=== PATIENT | female | born 1995 | race Caucasian/White ===

== ENCOUNTER → 2020-06-20 09:39 | Outpatient (CLI) | payer OTHER, SELFPAY ==
[2020-06-20 10:41] LABS: Appearance Urine UA CLEAR; Bilirubin Urine UA NEGATIVE (NEGATIVE); Color Urine UA YELLOW; Glucose Urine UA NEGATIVE (Negative); Ketones Urine UA NEGATIVE (NEGATIVE); Leukocyte Esterase Urine UA NEGATIVE (NEGATIVE); Nitrite Urine UA NEGATIVE (Negative); Occult Blood Urine UA NEGATIVE (Negative); Protein Urine UA NEGATIVE (Negative); Urobilinogen Urine UA 0.2 E.U./dL (0.2)
[2020-06-20 11:41] LABS: Add Manual Diff / Slide Review NO; Basophils Absolute Auto 0 /uL (0-100); Basophils Percent Auto 0.3 % (0-2); Eosinophils Absolute Auto 100 /uL (0-450); Eosinophils Percent Auto 1.6 % (2-4); Hematocrit 42.4 % (36-46); Hemoglobin 14.5 g/dL (12.0-16.0); Lymphocytes Absolute Auto 1700 /uL (1100-4500); Lymphocytes Percent Auto 19.3 % (25-40); Mean Corpuscular HGB Conc 34.2 % (30-36); Mean Corpuscular Hemoglobin 28.4 PG (26-34); Mean Corpuscular Volume 82.9 fL (80-100); Monocytes Absolute Auto 600 /uL (0-900); Monocytes Percent Auto 7.3 % (3-14); Neutrophils Absolute Auto 6300 /uL (1500-7000); Neutrophils Percent Auto 71.5 % (50-75); Platelet Count 293 X10^3/uL (150-400); Red Blood Cell Count 5.12 X10^6/uL (4.0-5.2); Red Cell Distribution Width 12.9 % (11.6-14.8); White Blood Cell Count 8.8 X10^3/uL (4.5-11.0)
[2020-06-20 12:57] LABS: Hepatitis B Surface Antigen NEGATIVE s/c (NEGATIVE); Rubella Antibody IgG 3.6 IU/mL (>15)
[2020-06-20 13:16] LABS: HIV 1 & 2 Ab/Ag 4th Gen Combo NEGATIVE (NEGATIVE); Hep C Virus Ab w/Reflex Quant NEGATIVE s/c (NEGATIVE)
[2020-06-21 05:11] LABS: RPR Screen Non Reactive (Non Reactive)
[2020-06-21 06:36] LABS: Varicella IgG Antibody 1161 index (Immune >165)
== END ==
PROVIDERS: Family Provider Nurse Practitioner; PCP Family Medicine; Referring Provider Family Medicine; Visit Provider Family Medicine
DX: Z34.01 Encounter for supervision of normal first pregnancy, first trimester (principal)
CPT/HCPCS: 36415; 80055; 81003; 86787; 86803; 86850; 86900; 86901; 87086; 87389

== ENCOUNTER → 2020-08-26 10:50 | Outpatient (CLI) | payer OTHER, SELFPAY ==
[2020-08-29 20:41] LABS: Calc Gestational Age EDD (.); Estriol, Free 1.99 ng/mL (.); Inhibin A, MoM 0.85 (.); Maternal Ethnicity Caucasian (.); Maternal Weight 205 lbs (.); Number of Fetuses No (.); OSBR Risk 1 IN 10000 (.); Results Report (.); Test Results *Screen Negative* (.); hCG, MoM 0.88 (.); hCG, Serum 19433 mIU/mL (.)
== END ==
PROVIDERS: Family Provider Nurse Practitioner; PCP Family Medicine; Referring Provider Family Medicine; Visit Provider Family Medicine
DX: Z34.02 Encounter for supervision of normal first pregnancy, second trimester (principal); Z3A.17 17 weeks gestation of pregnancy
CPT/HCPCS: 36415; 82105; 82677; 84702; 86336

== ENCOUNTER → 2020-09-09 14:12 | Outpatient (CLI) | payer OTHER, SELFPAY ==
--- NOTE | 2020-09-09 14:12 | DI.US.S_ITS ---
PROCEDURE: US OB >= 14 WEEKS FETUS INDICATIONS: ANATOMIC SURVEY OUTSIDE/PRIOR DATING DATA: Last menstrual period (LMP): 04/19/2020 LMP-based estimated date of delivery (MARY): 01/24/2021 First dating scan (date and location): 09/09/2020 Estimated date of delivery (MARY) from first dating scan: 01/27/2021 TECHNIQUE: Real-time scanning was performed of the fetus, with image documentation and biometric measurements. Endovaginal scanning: Not performed. COMPARISON: None. FINDINGS: General: A single living intrauterine gestation is present. Presentation: Breech. Placenta: Placental position is anterior, without previa. Amniotic fluid index: 16 cm, normal range is 5-24 cm. heart rate: 143 beats per minute. Maternal cervical canal: 3.2 cm long. Normal lower limit is 2.5 cm. biometrics: Biparietal diameter: 4.8 cm, 20 weeks 3 days Head circumference: 18 cm, 20 weeks 3 days Abdominal circumference: 13.7 cm, 19 weeks 1 day. 10th percentile. Femur length: 3.2 cm, 19 weeks 6 days Estimated gestational age from initial scan: Not applicable Composite gestational age from present scan: 20 weeks 0 days Estimated weight and percentile: 299 g, 9th percentile. Measurement variability for biometric dating: +/- 7 days from 14 weeks to 15 weeks 6 days gestation, +/- 10 days from 16 weeks to 21 weeks 6 days gestation, +/- 2 weeks from 22 weeks to 27 weeks 6 days gestation, +/- 3 weeks for 28 weeks gestation or later. weight reference: 4500 g or EFW >90/95% is considered macrosomia or large for gestational age. EFW <10% is small for gestational age. EFW 5% or less is considered intra-uterine growth restriction. Anatomic survey: Neuro: Ventricles are non-dilated at less than 10 mm. Cisterna magna is normal at 3-11 mm. Cerebellum is normal in size and morphology. Nuchal skin fold: Normal at less than 6 mm between 14-21 weeks gestational age. Face: Nose and lips, facial profile are normal. Spine: No evidence for spina bifida. Heart: 4-chambered heart is present, with normal ventricular outflow tracts. Diaphragm: Diaphragm is intact. Stomach: Left-sided stomach is present. Kidneys: No hydronephrosis. Normal is less than 5 mm in 2nd trimester, less than 7 mm in 3rd trimester. Cord: 3-vessel cord has orthotopic insertion. Bladder: Normal in size. Extremities: All 4 extremities identified. No maternal hydronephrosis. IMPRESSION: 1. Crouch living intrauterine at 20 weeks 0 days based on today's ultrasound. Breech position. Fetus is in the 9th percentile for weight estimated at 299 g. 2. Normal placenta and amniotic fluid. 3. Normal and complete anatomic survey. Dictated by: Alexandre Alcantar M.D. on 09/09/2020 at 17:00 Approved by: Alexandre Alcantar M.D. on 09/09/2020 at 17:05
== END ==
PROVIDERS: Family Provider Nurse Practitioner; PCP Family Medicine; Referring Provider Family Medicine; Visit Provider Family Medicine
DX: Z34.02 Encounter for supervision of normal first pregnancy, second trimester (principal); Z3A.20 20 weeks gestation of pregnancy
CPT/HCPCS: 76811

== ENCOUNTER → 2020-10-31 10:50 | Outpatient (CLI) | payer OTHER, SELFPAY ==
[2020-10-31 12:58] LABS: Hemoglobin 12.1 g/dL (12.0-16.0)
[2020-10-31 13:46] LABS: GTT (PREG) 1 Hour PP 50gm Dose 138 mg/dL (76-139)
== END ==
PROVIDERS: Family Provider Nurse Practitioner; PCP Family Medicine; Referring Provider Family Medicine; Visit Provider Family Medicine
DX: Z34.02 Encounter for supervision of normal first pregnancy, second trimester (principal); Z3A.25 25 weeks gestation of pregnancy
CPT/HCPCS: 36415; 82950; 85014; 85018

== ENCOUNTER → 2020-11-04 10:02 | Outpatient (CLI) | payer OTHER, SELFPAY ==
[2020-11-04 12:01] LABS: Glucose Fasting Gestational 78 mg/dL (76-95)
[2020-11-04 13:26] LABS: Glucose 1 Hour Gest 141 mg/dL (76-180)
[2020-11-04 13:53] LABS: Glucose 2 Hour Gest 141 mg/dL (76-155)
[2020-11-04 13:59] LABS: Glucose Tol Interp,Gestational INTERPRETATION
[2020-11-04 14:49] LABS: Glucose 3 Hour Gest 124 mg/dL (76-140)
== END ==
PROVIDERS: Family Provider Nurse Practitioner; PCP Family Medicine; Referring Provider Family Medicine; Visit Provider Family Medicine
DX: Z34.90 Encounter for supervision of normal pregnancy, unspecified, unspecified trimester (principal); R73.09 Other abnormal glucose
CPT/HCPCS: 36415; 82951; 82952

== ENCOUNTER 2020-11-12 09:32 | Emergency (ER) | payer OTHER, SELFPAY ==
[2020-11-12] VITALS (12 sets, daily range): BP systolic 98–116; BP diastolic 57–74; PULSE 70–93; RESP 16–28; TEMP 37.1; O2SAT 97–100; BMI 32.2
--- NOTE | 2020-11-12 09:32 | DI.RAD.S_ITS ---
PROCEDURE: XR CHEST 1V INDICATIONS: chest pain TECHNIQUE: One view of the chest was acquired. COMPARISON: None. FINDINGS: Surgical changes and devices: None. Lungs and pleura: Lungs are clear. No pleural effusions or pneumothorax. Mediastinum: Mediastinal contours appear normal. Heart size is normal. Bones and chest wall: No suspicious bony lesions. Overlying soft tissues appear unremarkable. IMPRESSION: No acute pulmonary process. Dictated by: Celia Hewitt M.D. on 11/12/2020 at 11:49 Approved by: Celia Hewitt M.D. on 11/12/2020 at 11:49
[2020-11-12 09:47] LABS: Add Manual Diff / Slide Review NO; Basophils Absolute Auto 0 /uL (0-100); Basophils Percent Auto 0.3 % (0-2); Eosinophils Absolute Auto 100 /uL (0-450); Eosinophils Percent Auto 1.8 % (2-4); Hematocrit 35.6 % (36-46); Hemoglobin 12.1 g/dL (12.0-16.0); Lymphocytes Absolute Auto 1500 /uL (1100-4500); Lymphocytes Percent Auto 19.3 % (25-40); Mean Corpuscular HGB Conc 34.1 % (30-36); Mean Corpuscular Hemoglobin 27.8 PG (26-34); Mean Corpuscular Volume 81.5 fL (80-100); Monocytes Absolute Auto 600 /uL (0-900); Monocytes Percent Auto 7.2 % (3-14); Neutrophils Absolute Auto 5600 /uL (1500-7000); Neutrophils Percent Auto 71.4 % (50-75); Platelet Count 254 X10^3/uL (150-400); Red Blood Cell Count 4.37 X10^6/uL (4.0-5.2); Red Cell Distribution Width 13.3 % (11.6-14.8); White Blood Cell Count 7.8 X10^3/uL (4.5-11.0)
[2020-11-12 09:55] LABS: INR 1.1 (0.9-1.3); Prothrombin Time 12.3 SECONDS (10.1-12.7)
[2020-11-12 09:57] LABS: PTT Partial Thromboplastin Tim 30 SECONDS (26.4-36.2)
[2020-11-12 09:59] LABS: Alanine Aminotransferase 12 IU/L (<35); Albumin 3.6 g/dL (3.5-5.0); Albumin Globulin Ratio 1.2 (1.0-2.8); Alkaline Phosphatase 83 U/L (38-126); Aspartate Aminotransferase 19 IU/L (14-36); Bilirubin Total 0.3 mg/dL (0.2-1.3); Blood Urea Nitrogen 7 mg/dL (7-17); Carbon Dioxide 18 mmol/L (22-32); Chloride 108 mmol/L (98-107); Creatine Kinase 32 U/L (30-135); Estimated Glomerular Filt Rate > 60.0 mL/min (>60); Globulin 3.1 g/dL (1.7-4.1); Glucose 89 mg/dL (70-100); HEMOLYSIS 15 (0-50); Lipase 23 U/L (23-300); Sodium 134 mmol/L (137-145); Total Protein 6.7 g/dL (6.3-8.2)
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
[2020-11-12 10:10] LABS: Troponin I < 0.012 ng/mL (0.01-0.034)
[2020-11-12] MEDS: ACETAMINOPHEN 325 MG TABLET 975 MG PO (10:25)
[2020-11-12] MEDS: SODIUM CHLORIDE 0.9% 1,000 ML 1000 ML IV (10:26)
[2020-11-12 10:34] LABS: Bacteria Urine None Seen; RBC Urine None Seen (0-5/HPF)
[2020-11-12 10:41] LABS: Amorphous Sediment Urine 2+; Culture Indicated Urine Cult Not Indicated; Squamous Epithelial Cell Urine 5-10 /HPF (0-5/HPF); WBC Urine 1-5/HPF (0-5/HPF)
[2020-11-12 11:11] LABS: COVID19 -Nasal RAPID Negative (Negative)
[2020-11-12] MEDS: PANTOPRAZOLE 40 MG VIAL IV (11:24)
[2020-11-12] MEDS: ONDANSETRON 4 MG/2 ML INJ IV (12:18)
== END 2020-11-12 13:21 | disposition home or self-care (01) ==
PROVIDERS: Emergency Provider Emergency Medicine; Family Provider Nurse Practitioner; PCP Family Medicine
DX: R07.89 Other chest pain (principal); M54.9 Dorsalgia, unspecified; R05 Cough
CPT/HCPCS: 36415; 71045; 80053; 81015; 82550; 83690; 84484; 85025; 85610; 85730; 87635; 93005; 93010; 96361; 96374; 96375; 99281; 99284; C9113; J2405

== ENCOUNTER → 2020-11-27 10:46 | Outpatient (CLI) | payer OTHER, SELFPAY ==
--- NOTE | 2020-11-27 11:40 | DIET.PN ---
INITIAL GESTATIONAL DIABETES ASSESSMENT ASSESS:?Ms. Lamb is a 25 yof female referred for gestational diabetes. She is . She endorses strong fam hx including maternal and paternal grandfathers and father. She reports cutting down on energy drinks and sugary sweetened beverages but admits to consuming 2 soft drinks per day and redbull 1x/wk. She walks her dog daily. Does not currently have a glucometer. ? MARY:?Jan 24[birth year] 2021 ? WKS GESTATION:?? 31 wks ?LABS: 1 hr: 138 3hr: 148 ? MEDS: na ? DIET:? B: cheerios/rice crispies; egg, cheese, valenica sandwich L: leftovers D: tacos; spaghetti; chicken spinach wrap Sn: ritz, cheese its, fruit snacks, snickers, trailmix, soda 1-2x/d ? HT:? 68in ? PRE-PREG WT:? 200lb ? PRE-PREG BMI:???30.4 ? CURRENT WT: 206.8 ? TOTAL WT GAIN:? 6lb EXERCISE: walks dog NUTRITION DX 1. Altered nutrition related lab values r/t gestational diabetes as evidenced by recent labs (OGGT). INTERVENTION 1. Discussed pathophysiology of gestational diabetes and impact of hormone and nutrition/diet on blood sugar control.? Discussed fed versus non-fed state.? 2. Recommended checking fasting, pre-meal and 1hr post prandial (3x/day).? Discussed goals for glycemic control (<95 FBG, <140 1-hr PP).? 3. Discussed the effect of carbohydrates/protein/fat on blood sugar control.? Stressed importance of consistent carbohydrate intake at each meal and provided instructions for recommended servings/portions of carbohydrates/protein per meal.? Provided pt with educational material. 4. Introduced carbohydrate counting and measuring carbohydrate content via servings sizes and reading nutrition labels.? Provided handouts.? Pt will need further review 5. Discussed importance of meal timing and not going >3 hours between meals.? Provided sample meal schedule for pt.? Pt agreeable.?? 6. Discussed importance a pre- vitamin and including food sources of calcium, vitamin D, iron and folic acid for baby and mother?s nutrition support. 7. Discussed caffeine intake. Recommend no more than 200 mg/day (1 cup coffee). Discussed eliminating all sugar sweetened beverages and red bull. Pt agreeable. 8. Discussed rule of 15 for hypoglycemia. 9. Recommend patient purchase Urine Ketone strips and instructed on use and when to contact provider. 10. Recommended patient continue exercise as appropriate per PCP approval. 11. Patient may need medication management, will follow-up with plan of care at next visit after reviewing glucose results.? MONITOR/EVAL: This RD sent request for rx for glucometer and strips to test 4x/day. Follow up scheduled X 1 week after receiving glucometer. Good compliance expected. Review: carb sources, carb counting, portion size, meal timing, BG log, weight.
== END ==
PROVIDERS: Family Provider Nurse Practitioner; PCP Family Medicine; Referring Provider Family Medicine; Visit Provider Family Medicine
DX: O24.419 Gestational diabetes mellitus in pregnancy, unspecified control (principal); Z3A.31 31 weeks gestation of pregnancy; Z71.3 Dietary counseling and surveillance
CPT/HCPCS: G0108

== ENCOUNTER → 2020-12-09 12:09 | Outpatient (CLI) | payer OTHER, SELFPAY ==
--- NOTE | 2020-12-09 12:10 | DI.US.S_ITS ---
PROCEDURE: US OB LIMITED INDICATIONS: GESTATIONAL DIABETES OUTSIDE/PRIOR DATING DATA: Last menstrual period (LMP): 04/19/20. First dating scan (date and location): 09/09/20 . Estimated date of delivery (MARY) from first dating scan: 01/27/21 . TECHNIQUE: Real-time scanning was performed of the fetus, with image documentation and biometric measurements. Endovaginal scanning: Not needed COMPARISON: None. FINDINGS: General: A single living intrauterine gestation is present. Presentation: Vertex. Placenta: Placental position is anterior , without previa. Amniotic fluid index: 10.2 cm, normal range is 5-24 cm. heart rate: 133 Maternal cervical canal: 4.2 cm biometrics: Biparietal diameter: 8.3 cm, 33 weeks 2 days Head circumference: 29.5 cm, 32 weeks 5 days Abdominal circumference: 27 0.2 cm, 31 weeks 2 days Femur length: 5.9 cm, 30 weeks 4 days Estimated gestational age from initial scan: 33 weeks 0 days Composite gestational age from present scan: 32 weeks 0 days Estimated weight and percentile: 1751 g, lower 7th percentile Measurement variability for biometric dating: +/- 7 days from 14 weeks to 15 weeks 6 days gestation, +/- 10 days from 16 weeks to 21 weeks 6 days gestation, +/- 2 weeks from 22 weeks to 27 weeks 6 days gestation, +/- 3 weeks for 28 weeks gestation or later. weight reference: 4500 g or EFW >90/95% is considered macrosomia or large for gestational age. EFW <10% is small for gestational age. EFW 5% or less is considered intra-uterine growth restriction. Other: Not applicable. IMPRESSION: Single living intrauterine gestation, appropriate interval growth, the delivery date is projected to be centered on 01/27/21 Dictated by: Kal Roy M.D. on 12/09/2020 at 14:14 Approved by: Kal Roy M.D. on 12/09/2020 at 14:17
== END ==
PROVIDERS: Family Provider Nurse Practitioner; PCP Family Medicine; Referring Provider Family Medicine; Visit Provider Family Medicine
DX: O24.419 Gestational diabetes mellitus in pregnancy, unspecified control (principal); Z3A.32 32 weeks gestation of pregnancy
CPT/HCPCS: 76815

== ENCOUNTER → 2020-12-29 12:31 | Outpatient (CLI) | payer OTHER, SELFPAY ==
[2020-12-30 11:52] LABS: Strep Grp B PCR POS for Grp B Strep
== END ==
PROVIDERS: Family Provider Nurse Practitioner; PCP Family Medicine; Visit Provider Family Medicine
DX: Z34.03 Encounter for supervision of normal first pregnancy, third trimester (principal); Z3A.36 36 weeks gestation of pregnancy
CPT/HCPCS: 87653

== ENCOUNTER 2020-12-29 15:37 | Outpatient (CLI) | payer OTHER, SELFPAY | END 2020-12-29 16:13 | disposition home or self-care (01) | LOC: LABOR 15:42 → OB 12-30 07:46 | PROVIDERS: Family Provider Nurse Practitioner; PCP Family Medicine; Referring Provider Family Medicine; Visit Provider Family Medicine | DX: O24.419 Gestational diabetes mellitus in pregnancy, unspecified control (principal); Z3A.36 36 weeks gestation of pregnancy | CPT/HCPCS: 59025; 87653; G0378; G0379 ==

== ENCOUNTER 2021-01-05 10:08 | Outpatient (CLI) | payer OTHER, SELFPAY | END 2021-01-05 10:46 | disposition home or self-care (01) | LOC: LABOR 10:44 → OB 13:10 | PROVIDERS: Family Provider Nurse Practitioner; PCP Family Medicine; Referring Provider Family Medicine; Visit Provider Family Medicine | DX: O24.419 Gestational diabetes mellitus in pregnancy, unspecified control (principal); Z3A.37 37 weeks gestation of pregnancy | CPT/HCPCS: 59025; G0378; G0379 ==

== ENCOUNTER 2021-01-16 11:50 | Outpatient (CLI) | payer OTHER, SELFPAY ==
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
== END 2021-01-16 12:43 | disposition home or self-care (01) ==
LOC: OB 01-18 12:17
PROVIDERS: Family Provider Nurse Practitioner; PCP Family Medicine; Referring Provider Family Medicine; Visit Provider Family Medicine
DX: O24.419 Gestational diabetes mellitus in pregnancy, unspecified control (principal); Z3A.38 38 weeks gestation of pregnancy
CPT/HCPCS: 59025; G0378; G0379

== ENCOUNTER 2021-01-27 22:08 | Inpatient (IN) | payer OTHER, SELFPAY ==
[2021-01-27 23:38] VITALS: BP 126/80
[2021-01-28] MEDS: LACTATED RINGERS 1,000 ML 100 ML IV ×2 (01:17→02:50)
[2021-01-28 01:21] LABS: Add Manual Diff / Slide Review NO; Basophils Absolute Auto 0 /uL (0-100); Basophils Percent Auto 0.2 % (0-2); Eosinophils Absolute Auto 100 /uL (0-450); Eosinophils Percent Auto 0.7 % (2-4); Hematocrit 38.7 % (36-46); Hemoglobin 13.3 g/dL (12.0-16.0); Lymphocytes Absolute Auto 1700 /uL (1100-4500); Lymphocytes Percent Auto 14.9 % (25-40); Mean Corpuscular HGB Conc 34.2 % (30-36); Mean Corpuscular Hemoglobin 27.6 PG (26-34); Mean Corpuscular Volume 80.6 fL (80-100); Monocytes Absolute Auto 800 /uL (0-900); Monocytes Percent Auto 6.9 % (3-14); Neutrophils Absolute Auto 8700 /uL (1500-7000); Neutrophils Percent Auto 77.3 % (50-75); Platelet Count 220 X10^3/uL (150-400); Red Cell Distribution Width 14.5 % (11.6-14.8); White Blood Cell Count 11.2 X10^3/uL (4.5-11.0)
[2021-01-28 01:31] LABS: COVID19 -Nasal RAPID Negative (Negative)
[2021-01-28] MEDS: FENT 2MCG/ML BUPIV 0.125% EPI 200 MCG/100 ML PLAST..BAG 12 MCG EPIDURAL (02:00)
[2021-01-28] MEDS: PENICILLIN G POTASSIUM 5,000,000 UNIT in DEXTROSE 5% IN WATER 250 ML IV (03:31)
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
[2021-01-28] MEDS: PENICILLIN G POTASSIUM 3,000,000 UNIT/50 ML FROZ.PIGGY 100 UNIT IV (07:28)
[2021-01-28] MEDS: OXYTOCIN PREMIX 30 UNIT/500 ML PLAST..BAG 150 UNIT IV (08:56)
--- NOTE | 2021-01-28 09:04 | P.PCN_ITS ---
Procedures Date/Time Date of procedure: 01/28/21 Time of procedure: 09:04 General Procedure description: Stage I of labor. Approximately 8 hours. Patient came to Labor and delivery for an early labor with contractions normal blood pressure afebrile. She was 3 cm dilated. She progressed gradually and had uncomfortable contractions. She was admitted to the labor and delivery for. Patient became more uncomfortable and requested an epidural which was given. Patient had gradual progression of labor during stage I which was consistent. Made a good transition of baby and cervical change. Category 1 category 2 tracing during stage I of labor. Patient received good comfort with epidural. At rupture of men drains spontaneously patient had thin meconium which progressed to more thick meconium. At approximately 7:30 a.m. patient was completely effaced. 0 to +1 station. Category 1 tracing. Patient's vital signs were stable. She was given 2 courses of antibiotics with pen G during stage I of labor due to her GBS positive status. Patient received HSV prophylaxis during the last 4 weeks of with valacyclovir. Stage II of labor. Approximately 1 hour. Category 1 and category 2 tracing. Mom pushed when baby made good descent from 0 to +3 station. heart tones were reassuring with decelerations with pushing. Patient had continuous meconium. Patient had good delivery of baby head without a PT ostomy. There was a nuchal cord which was easily reduced. And delivery of the shoulders without difficulty. Baby was placed on mother's abdomen. Baby had spontaneous cry. And good movement good tone and good color. Mom had good comfort during the pushing stage due to her epidural. Stage III of labor approximately 10 minutes delivery of intact placenta three- vessel cord. Patient had small bilateral narayan superior labial tears which did not need a repair. Patient was given Pitocin 30 units in a bag to run after delivery of the fetus. Mom and baby were resting comfortably estimated blood loss 300 cc.
[2021-01-28] MEDS: ONDANSETRON 4 MG/2 ML INJ IV (09:49)
[2021-01-29 07:17] LABS: Hematocrit 36.2 % (36-46); Hemoglobin 12.2 g/dL (12.0-16.0)
[2021-01-29] MEDS: LANOLIN OINT 7 GM 1 APPLIC TOP (07:58)
[2021-01-29] MEDS: DOCUSATE 100 MG CAPSULE PO (07:59)
[2021-01-29] MEDS: IBUPROFEN 600 MG TABLET PO (07:59)
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
[2021-01-29 09:48] VITALS: BP 130/86; PULSE 75; RESP 17; TEMP 37.1
[2021-01-29] MEDS: MEASLES,MUMPS,RUBELLA VACC/PF 0.5 ML VIAL SUBCUT (11:13)
== END 2021-01-29 11:40 | disposition home or self-care (01) | DRG 806 ==
PROVIDERS: Admitting Provider Family Medicine; Family Provider Nurse Practitioner; PCP Family Medicine; Referring Provider Family Medicine; Visit Provider Family Medicine
DX: O24.420 Gestational diabetes mellitus in childbirth, diet controlled (principal); F33.9 Major depressive disorder, recurrent, unspecified; Z37.0 Single live birth; O98.52 Other viral diseases complicating childbirth; O99.344 Other mental disorders complicating childbirth; O99.824 Streptococcus B carrier state complicating childbirth; Z3A.40 40 weeks gestation of pregnancy; Z20.822 Contact with and (suspected) exposure to COVID-19; B00.9 Herpesviral infection, unspecified; O77.0 Labor and delivery complicated by meconium in amniotic fluid
CPT/HCPCS: 01967; 36415; 59050; 59400; 85014; 85018; 85025; 86850; 86900; 86901; 87635; C9803; G0379; J2405; J2540; J2590

== ENCOUNTER → 2021-06-15 08:13 | Outpatient (CLI) | payer OTHER, SELFPAY ==
--- NOTE | 2021-06-15 08:14 | DI.US.S_ITS ---
PROCEDURE: US ABDOMEN COMPLETE INDICATIONS: RIGHT UPPER QUADRANT PAIN TECHNIQUE: Real-time scanning was performed of the abdominal and retroperitoneal organs, with image documentation. COMPARISON: None. FINDINGS: Liver: Liver is mildly prominent with steatosis. There is a focus of relative increased echogenicity within the right lower lobe measuring 19 x 10 x 13 mm. Gallbladder: Gallbladder is unremarkable. Wall thickness measures 1.8 mm. Biliary ducts: Intrahepatic bile ducts are non-dilated. Extrahepatic bile duct caliber measures 2.7 mm. Normal is 6-7 mm or less in diameter, or 10 mm or less post-cholecystectomy. Pancreas: Visualized portions of the pancreas are sonographically normal. Spleen: Spleen is normal in size and homogeneous in echotexture. Kidneys: Kidneys are normal in size and echotexture. Right kidney measures 10.9 cm long; left kidney measures 12.1 cm long. No hydronephrosis. It is noted that the inferior aspect of the right kidney is not well seen secondary to overlying bowel gas. There is a punctate area of increased echogenicity within the superior right renal pole without obstruction. No solid masses. Aorta: Visualized aorta is normal in caliber at less than 3 cm. Iliacs: Proximal common iliac arteries are normal in caliber at less than 2.5 cm. IVC: Intrahepatic inferior vena cava is patent. Miscellaneous: No free abdominal fluid. IMPRESSION: 1. Relative focus of increased echogenicity within the liver suspicious for hemangioma. 2. Suspected punctate nonobstructing right renal calculus. Dictated by: Celia Hewitt M.D. on 06/15/2021 at 10:37 Approved by: Celia Hewitt M.D. on 06/15/2021 at 10:39
== END ==
PROVIDERS: Family Provider Nurse Practitioner; PCP Family Medicine; Referring Provider Family Medicine; Visit Provider Family Medicine
DX: R10.11 Right upper quadrant pain (principal)
CPT/HCPCS: 76700

== ENCOUNTER → 2021-10-13 16:20 | Outpatient (CLI) | payer OTHER, SELFPAY ==
[2021-10-13 16:52] LABS: COVID19 -Nasal RAPID Negative (Negative)
== END ==
PROVIDERS: Family Provider Nurse Practitioner; PCP Family Medicine; Visit Provider Nurse Practitioner Family
DX: R09.81 Nasal congestion (principal); R05.9 Cough, unspecified
CPT/HCPCS: 87635

== ENCOUNTER → 2021-11-12 08:12 | Outpatient (CLI) | payer OTHER, SELFPAY ==
--- NOTE | 2021-11-12 08:14 | DI.US.S_ITS ---
PROCEDURE: US PELVIC COMPLETE INDICATIONS: LEFT FLANK PAIN TECHNIQUE: Real-time scanning was performed of the pelvic organs, with image documentation. Additional endovaginal scanning was necessary due to incomplete visualization of the adnexal and endometrial structures by transabdominal scanning. COMPARISON: [facility], US, US ABDOMEN COMPLETE, 06/15/2021, 8:39. [facility], US, US OB LIMITED, 12/09/2020, 12:21. [facility], US, PELVIS SONO TRANSVAGINAL (PNL), 09/05/2013, 7:12. FINDINGS: Uterus: Uterus is retroverted and normal in size at 5.7 x 4.3 x 5.5 cm. The myometrium is homogeneous. The endometrium measures 7 mm combined thickness. Ovaries: The right ovary measures 3.1 x 2.1 x 2.8 cm,. The left ovary measures 2.9 x 2.4 x 2.2 cm. The ovaries have a normal sonographic appearance. Other: No pathologic free abdominal or pelvic fluid. No hydronephrosis in left kidney. IMPRESSION: 1. Normal ultrasound appearance of uterus and ovaries. 2. A cause for left flank pain is not identified. We strive to produce accurate, complete, and clear reports of imaging services. To assist us in improving patient care, this report was composed using standard report templates and voice recognition software. Therefore, it may contain abnormal punctuation, insertions and/or omissions. Occasional wrong-word or sound-alike substitutions may occur. Though we review the report and make efforts to correct it, we do recommend that the report be read carefully in proper context to recognize any text inaccuracies. Dictated by: Sosa Domínguez M.D. on 11/12/2021 at 12:30 Approved by: Sosa Domínguez M.D. on 11/12/2021 at 12:37
== END ==
PROVIDERS: Family Provider Nurse Practitioner; PCP Family Medicine; Referring Provider Physician Assistant; Visit Provider Physician Assistant
DX: R10.12 Left upper quadrant pain (principal); R10.32 Left lower quadrant pain
CPT/HCPCS: 76830; 76856

== ENCOUNTER → 2021-11-24 16:06 | Outpatient (CLI) | payer OTHER, SELFPAY ==
--- NOTE | 2021-11-24 16:08 | DI.US.S_ITS ---
PROCEDURE: US ABDOMEN COMPLETE INDICATIONS: Sharp left upper and lower quadrant pain TECHNIQUE: Real-time scanning was performed of the abdominal and retroperitoneal organs, with image documentation. COMPARISON: [facility], US, US ABDOMEN COMPLETE, 06/15/2021, 8:39. FINDINGS: Liver: Liver is normal in size and homogeneous in echotexture. Echogenic focus in the right lobe of the liver measuring 1.3 cm is unchanged since May 2021. Liver surface appears smooth. Gallbladder: Nondilated. No stones or sludge. Normal gallbladder wall thickness. No pericholecystic fluid. Negative sonographic Ashford's sign. Biliary ducts: Intrahepatic bile ducts are non-dilated. Extrahepatic bile duct caliber measures 3 mm. Normal is 6-7 mm or less in diameter, or 10 mm or less post-cholecystectomy. Pancreas: Visualized portions of the pancreas are sonographically normal. Spleen: Spleen is normal in size and homogeneous in echotexture. Measures 9.3 cm. Kidneys: Kidneys are normal in size and echotexture. Right kidney measures 12.3 cm long; left kidney measures 12.6 cm long. No hydronephrosis or nephrolithiasis. No solid masses. Aorta: Visualized aorta is normal in caliber at less than 3 cm. Iliacs: Proximal common iliac arteries are normal in caliber at less than 2.5 cm. IVC: Intrahepatic inferior vena cava is patent. Miscellaneous: No free abdominal fluid. IMPRESSION: 1. Echogenic focus in the right lobe of the liver measuring 1.3 cm. This most likely represents a benign hemangioma. This is stable since May 2021. -This could be further characterized with multiphase liver MRI or CT. 2. No acute cholecystitis. No gallstones. 3. No hydronephrosis. 4. No splenomegaly. Dictated by: Alexandre Alcantar M.D. on 11/24/2021 at 16:55 Approved by: Alexandre Alcantar M.D. on 11/24/2021 at 17:00
== END ==
PROVIDERS: Family Provider Nurse Practitioner; PCP Family Medicine; Referring Provider Physician Assistant; Visit Provider Physician Assistant
DX: R10.12 Left upper quadrant pain (principal); R10.32 Left lower quadrant pain
CPT/HCPCS: 76700

== ENCOUNTER 2022-03-21 08:32 | Emergency (ER) | payer OTHER, SELFPAY ==
[2022-03-21 08:35] VITALS: BP 127/79; PULSE 85; RESP 14; TEMP 36.4; O2SAT 97; BMI 31.1
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
--- NOTE | 2022-03-21 09:02 | PC.NURSE ---
Patient received TDAP when she was in 2020
== END 2022-03-21 09:19 | disposition home or self-care (01) ==
PROVIDERS: Emergency Provider Emergency Medicine; Family Provider Nurse Practitioner; PCP Family Medicine
DX: S70.372A Other superficial bite of left thigh, initial encounter (principal); R21 Rash and other nonspecific skin eruption; T78.49XA Other allergy, initial encounter; W54.0XXA Bitten by dog, initial encounter
CPT/HCPCS: 99281

== ENCOUNTER 2023-03-06 13:19 | Observation (INO) | payer OTHER, SELFPAY ==
[2023-03-06] VITALS (16 sets, daily range): BP systolic 115–137; BP diastolic 71–90; PULSE 54–75; RESP 12–28; TEMP 36.3–36.7; O2SAT 94–99; BMI 30.4
[2023-03-06 13:57] LABS: Add Manual Diff / Slide Review NO; Basophils Absolute Auto 0 /uL (0-100); Basophils Percent Auto 0.4 % (0-2); Eosinophils Absolute Auto 200 /uL (0-450); Eosinophils Percent Auto 1.4 % (2-4); Hematocrit 43.5 % (36-46); Hemoglobin 15.3 g/dL (12.0-16.0); Lymphocytes Absolute Auto 3200 /uL (1100-4500); Lymphocytes Percent Auto 31.2 % (25-40); Mean Corpuscular HGB Conc 35.1 % (30-36); Mean Corpuscular Volume 79.6 fL (80-100); Monocytes Absolute Auto 600 /uL (0-900); Monocytes Percent Auto 5.7 % (3-14); Neutrophils Absolute Auto 6400 /uL (1500-7000); Neutrophils Percent Auto 61.3 % (50-75); Platelet Count 343 X10^3/uL (150-400); Red Blood Cell Count 5.47 X10^6/uL (4.0-5.2); Red Cell Distribution Width 12.7 % (11.6-14.8); White Blood Cell Count 10.4 X10^3/uL (4.5-11.0)
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
--- NOTE | 2023-03-06 14:02 | DI.CT.S_ITS ---
PROCEDURE: CT ABDOMEN PELVIS W CON INDICATIONS: LUQ Abdominal pain TECHNIQUE: After the administration of intravenous contrast, axial sections acquired from the lung bases to the pubic symphysis. Coronal and sagittal reformats were performed. For radiation dose reduction, the following was used: automated exposure control, adjustment of mA and/or kV according to patient size. COMPARISON: None. FINDINGS: Image quality: Excellent. Lung bases: Unremarkable. Heart: No significant findings. ABDOMEN: Liver: 1.5 cm hypodensity within the central liver measuring greater than simple free fluid. Gallbladder: Unremarkable Biliary ducts: Unremarkable. Pancreas: Unremarkable. Spleen: Unremarkable. Adrenal Glands: Unremarkable. Kidneys and Ureters: Normal enhancement. No hydronephrosis. Punctate nonobstructing nephrolith within the lower pole of the left kidney. Ureters are normal in course and caliber. Stomach and Bowel: Stomach is unremarkable. There are mildly dilated loops of small bowel within the mid abdomen measuring up to 3.2 cm. There is a periumbilical hernia containing of a loop of small bowel. There is adjacent fluid. The bowel distal to this is decompressed. The appendix is normal. Large bowel is unremarkable in appearance. Peritoneum: No abnormal intraperitoneal fluid. No free air. Ventral Wall: As above. Abdominal Nodes: No retroperitoneal or mesenteric adenopathy by size criteria. Vessels: Aorta and inferior vena cava are normal in size. PELVIS: Pelvic Organs: Unremarkable. Bladder: Unremarkable. Pelvic Nodes: No enlarged lymph nodes. Miscellaneous: No hernias are seen. Bones: No acute abnormality. IMPRESSION: Likely incarcerated loop of small bowel within umbilical hernia with adjacent fluid concerning for complication. In addition this results in proximal small bowel obstruction. Recommend surgical consultation. Punctate non-obstructing left-sided nephrolith. Nonspecific hypodensity within the liver measuring 1.5 cm. Given age is likely represents a benign lesion such as meningioma. Consider MRI for further evaluation. Dictated by: Lester De La Fuente D.O. on 03/06/2023 at 13:35 Approved by: Lester De La Fuente D.O. on 03/06/2023 at 13:41
[2023-03-06 14:04] LABS: Bacteria Urine Moderate (10-30); Culture Indicated Urine Specimen Cultured; RBC Urine 0-1/HPF (0-5/HPF); Squamous Epithelial Cell Urine 5-10 /HPF (0-5/HPF); WBC Urine 5-10/HPF (0-5/HPF)
[2023-03-06 14:12] LABS: Alanine Aminotransferase 25 IU/L (<35); Albumin 4.4 g/dL (3.5-5.0); Albumin Globulin Ratio 1.2 (1.0-2.8); Alkaline Phosphatase 96 U/L (38-126); Aspartate Aminotransferase 22 IU/L (14-36); Bilirubin Total 0.6 mg/dL (0.2-1.3); Blood Urea Nitrogen 8 mg/dL (7-17); Calcium 9.2 mg/dL (8.4-10.2); Carbon Dioxide 29 mmol/L (22-32); Chloride 103 mmol/L (98-107); Estimated Glomerular Filt Rate > 60 mL/min (>60); Globulin 3.7 g/dL (1.7-4.1); Glucose 92 mg/dL (70-100); HEMOLYSIS < 15 (0-50); Lipase 31 U/L (23-300); Potassium 3.9 mmol/L (3.4-5.1); Sodium 140 mmol/L (137-145); Total Protein 8.1 g/dL (6.3-8.2)
[2023-03-06] MEDS: ONDANSETRON 4 MG/2 ML INJ IV (15:08)
[2023-03-06] MEDS: HYDROMORPHONE 1 MG INJ IV (15:25)
--- NOTE | 2023-03-06 15:52 | DI.US.S_ITS ---
PROCEDURE: US ABDOMEN LIMITED INDICATIONS: UMBILICAL HERNIA; POSSIBLE INCARCERATION TECHNIQUE: Real-time focused scanning was performed of the abdomen, with image documentation. COMPARISON: [facility], CT, CT ABDOMEN PELVIS W CON, 03/06/2023, 14:12. [facility], US, US ABDOMEN COMPLETE, 11/24/2021, 16:26. FINDINGS/IMPRESSION: As noted on same day CT there is a midline umbilical hernia including fat and loop of bowel. This is non reducible. This however does get exaggerated with Valsalva. There is a small amount of adjacent fluid. This is again concerning for incarcerated hernia as demonstrated on CT. As previously noted, recommend surgical consultation. Dictated by: Lester De La Fuente D.O. on 03/06/2023 at 15:48 Approved by: Lester De La Fuente D.O. on 03/06/2023 at 15:52
[2023-03-06 18:24] LABS: COVID19 -Nasal RAPID Negative (Negative)
[2023-03-06] MEDS: LACTATED RINGERS 1,000 ML 100 ML IV (20:12)
[2023-03-07] VITALS (14 sets, daily range): BP systolic 93–142; BP diastolic 57–85; PULSE 54–78; RESP 12–19; TEMP 36.1–36.6; O2SAT 95–100; BMI 31.2
[2023-03-07] MEDS: LACTATED RINGERS 1,000 ML 100 ML IV (05:51)
[2023-03-07] MEDS: ACETAMINOPHEN 325 MG TABLET 650 MG PO (09:20)
--- NOTE | 2023-03-07 10:40 | CM.DANOTE ---
Patient is a 27 yo female who was admitted on 03/06/23 for Abd Pain. Pt has [employer] MNGMT for insurance and her PCP is Dr. Ferdinand Mederos. EMR was reviewed. Per Surgeon, pt with incarcerated bowel with hernia and failed reduction in the ED and admitted for possible surgery today. SW met bedside with pt and explained role and she confirms her pain is better managed but still has discomfort with movement. Pt states she lives in [place] with roommates and works at the [employer] and drives and is active and independent at baseline, no DME and no hx of HH or SNF. Pt didn't mention a child, but shows she had labor and delivery in 2020. Pt states she drove herself to the ED from work at the [employer] yesterday and her vehicle is in the parking lot but her mom lives locally and her sister lives near her in [place] and has a few days off work this week and can stay with her and assist if needed. Pt does not anticipate any needs at discharge and preference is home with family assist. Plan: SW to follow closely for likely surgical intervention today and any identified discharge planning needs to confirm safe plan of home with local family assist as needed. HILLARY Farley Discharge Planning/Care Management CM Discharge Assessment Start: 03/07/23 10:38 Freq: Status: Active Protocol: Document 03/07/23 10:38 BF (Rec: 03/07/23 10:39 BF [id number]) Discharge Planning Assessment Assigned Financial Engineer HILLARY Raines DPOA/Assigned Designee Name mother informally Contact Information [phone] Advance Directives? No Advance Directives on File No History Provided By Patient,Medical Record Has Patient been admitted in last 30 No days? Prior Living Arrangements House Household Members family,children Type of transporation used prior to Drives own vehicle admit Independent with ADL's Yes Is patient alert and oriented? Yes Caregiver for Another Yes: gave in 2020 Barriers to Discharge No Discharge Plan Home Transportation Arrangement Likely sister or mother to transport, although pt's car is in the parking lot Referrals Initiated None needed Whiteboard Updated in Patient Room with Yes name and ext. # of Financial Engineer Review Status In Process Please Provide Date Initial DC 03/07/23 Assessment Was Performed Next Review Type Continued Stay Review
[2023-03-07] MEDS: LACTATED RINGERS 1,000 ML 42 ML IV (12:14)
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
[2023-03-07] MEDS: CEFAZOLIN 2 GM/100 ML PREMIX 100 ML IV (12:45)
--- NOTE | 2023-03-07 12:57 | SUR.OPER ---
Supine on padded OR bed, head on pillow, arms secured on padded arm boards at <90 degrees abduction, legs uncrossed, safety belt at thigh, tape over blanket over lower legs.
[2023-03-07] MEDS: BUPIVACAINE 0.5% (PF) 10 ML VIAL INJ (13:05)
--- NOTE | 2023-03-07 13:16 | PM.OP.1 ---
Operative Date/Time/Diagnoses Date of procedure: 03/07/23 Time of procedure: 13:16 Pre-op diagnosis: Umbilical hernia with incarcerated small bowel Post-op diagnosis: same Procedure & Clinicians Procedure: Umbilical hernia repair with possible mesh. Anticipated defect 5 mm Same procedure as scheduled: Yes Indications: Umbilical hernia with incarcerated small bowel Surgeon: Beckie Macario Click Yes if Unassisted: Yes Anesthesia Type: General and Local Operative Notes Findings: Hernia spontaneously reduced with general anesthetic. Defect 3 mm in size Closure Type: primary Specimen(s): none sent Procedure in detail: Preop diagnosis: Umbilical hernia with incarcerated small bowel defect expected be 5 mm Postop diagnosis: Same Operative procedure: Umbilical hernia repair 3 mm defect. No mesh Surgeon: Kimberly Macario MD Findings: 3 mm defect spontaneous reduction of small bowel upon anesthetic induction Procedure: Patient placed in a supine position. Prepped and draped sterile fashion expose her abdomen. Supraumbilical curvilinear incision was created using electrocautery and blunt dissection. I was able to distinguish the defect was was 3 mm in diameter. Fascial edges of defect were cleared with electrocautery. A 2-0 Ethibond suture in a mattress use ditch was used to close the defect. Skin was closed with a running 4-0 Vicryl. Steri-Strips and sterile dressings were placed. Patient was awakened, extubated, taken to recovery room in stable condition with needle, instrument, sponge count correct Blood loss: 2 mL Specimen: None Complications: none Post-operative Condition: stable Disposition: PACU
[2023-03-07] MEDS: ONDANSETRON 4 MG/2 ML INJ (13:33)
[2023-03-07] MEDS: LORazepam 2 MG/ML INJ 0.5 MG IV (13:38)
--- NOTE | 2023-03-07 13:38 | SUR.PHASEI ---
Pt crying and vomiting and in pain and states, I'm having a panic attack.' Dr Jo at bedside. See new order.
--- NOTE | 2023-03-07 13:58 | SUR.PHASEI ---
Called in to OR #1. See new order for Torodol from Dr Macario.
[2023-03-07] MEDS: KETOROLAC 30 MG/ML VIAL IV (14:07)
--- NOTE | 2023-03-07 14:23 | SUR.PHASEI ---
Pt transferred back to room 215 with SBAR report at bedside to Lesli DELACRUZ. Pt up to BR. Steady on feet. Voided. Mom at bedside.
== END 2023-03-07 19:10 | disposition home or self-care (01) ==
LOC: ED 17:12 → AC 17:12
PROVIDERS: Admitting Provider Surgery; Emergency Provider Registered Nurse; Family Provider Nurse Practitioner; PCP Family Medicine; Referring Provider Registered Nurse; Visit Provider Surgery
PROC: (CPT 49592; principal; 2023-03-07 12:15)
DX: K42.0 Umbilical hernia with obstruction, without gangrene (principal); Z20.822 Contact with and (suspected) exposure to COVID-19; F17.210 Nicotine dependence, cigarettes, uncomplicated
CPT/HCPCS: 49592; 36415; 74177; 76705; 80053; 81003; 81015; 81025; 83690; 85025; 87086; 87635; 96361; 96374; 96375; 99284; C9803; G0378; J0330; J0690; J1100; J1170; J1885; J2060; J2250; J2405; J2704; J3010

== ENCOUNTER 2023-03-20 15:26 | Emergency (ER) | payer OTHER, SELFPAY ==
[2023-03-06 20:22] VITALS: BMI 30.4
[2023-03-20 15:37] VITALS: BP 126/75; PULSE 92; RESP 16; TEMP 37.1; O2SAT 97; BMI 31.4
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
[2023-03-20 15:47] VITALS: PULSE 88; O2SAT 97
--- NOTE | 2023-03-20 15:56 | DI.RAD.S_ITS ---
PROCEDURE: XR KUB INDICATIONS: f/u abdominal pain s/p SBO repair TECHNIQUE: One view of the abdomen acquired. COMPARISON: None. FINDINGS: Surgical changes and devices: None. Bowel: Bowel gas pattern is normal. Soft tissues: No suspicious abdominal calcifications. Visualized solid organ contours appear normal in size. Bones: No suspicious bony lesions. IMPRESSION: Unremarkable abdominal radiograph Approved by: Kenroy Montano M.D. on 03/20/2023 at 15:40
[2023-03-20 16:00] VITALS: PULSE 88; O2SAT 96
[2023-03-20 16:22] VITALS: BP 117/71; PULSE 89; O2SAT 98
[2023-03-20 16:30] VITALS: BP 118/70; PULSE 85; O2SAT 97
[2023-03-20 17:00] VITALS: BP 112/61; PULSE 91; O2SAT 97
== END 2023-03-20 17:06 | disposition home or self-care (01) ==
PROVIDERS: Emergency Provider Physician Assistant Medical; Family Provider Nurse Practitioner; PCP Family Medicine
DX: R11.2 Nausea with vomiting, unspecified (principal); T50.905A Adverse effect of unspecified drugs, medicaments and biological substances, initial encounter
CPT/HCPCS: 74018; 99283

== ENCOUNTER → 2023-03-31 16:09 | Outpatient (CLI) | payer OTHER, SELFPAY ==
[2023-03-06 20:22] VITALS: BMI 30.4
[2023-03-31 20:20] LABS: Urine N gonorrhoeae NOT DETECTED
[2023-03-31 21:15] LABS: Urine Chlamydia NOT DETECTED
== END ==
PROVIDERS: Family Provider Nurse Practitioner; PCP Family Medicine; Visit Provider Family Medicine
DX: Z30.09 Encounter for other general counseling and advice on contraception (principal)
CPT/HCPCS: 87491; 87591

== ENCOUNTER → 2025-01-17 16:09 | Outpatient (CLI) | payer OTHER, SELFPAY ==
[2023-03-06 20:22] VITALS: BMI 30.4
== END ==
PROVIDERS: Family Provider Nurse Practitioner; PCP Family Medicine; Visit Provider Physician Assistant
DX: L08.9 Local infection of the skin and subcutaneous tissue, unspecified (principal)
CPT/HCPCS: 87070; 87075; 87077; 87186; 87205